=== PATIENT | female | born 1955 | race Caucasian/White ===

== ENCOUNTER 2018-06-29 09:06 | Emergency (ER) | payer BC ==
--- NOTE | 2018-06-29 09:10 | UC ---
Hand/Wrist HPI - HPI Summary HPI Summary: 62 yo female presents with right ring finger pain. She tells me that yesterday she tripped over a log in the snow and fell forward onto her outstretched hands. Did not hit her head. Was able to get to her feet immediately following the incident. Today she has pain in her right ring finger with swelling and bruising. She is right handed. She has applied ice to the area and taken ibuprofen with some relief. Denies numbness or tingling. - History Of Current Complaint Stated Complaint: R HAND COMPLAINT Time Seen by Provider: 06/29/18 09:10 Hx Obtained From: Patient Onset/Duration: Sudden Onset Severity Initially: Mild Severity Currently: Mild Pain Intensity: 4 Pain Scale Used: 0-10 Numeric - Allergies/Home Medications Allergies/Adverse Reactions: Allergies Allergy/AdvReac Type Severity Reaction Status Date / Time amoxicillin Allergy Rash Verified 06/29/18 09:20 nickel Allergy ITCHY, Verified 06/29/18 09:20 REDDENED AND INFLAMMED SKIN PMH/Surg Hx/FS Hx/Imm Hx - Additional Past Medical History Additional PMH: None - Surgical History Surgical History: Yes Surgery Procedure, Year, and Place: 1968-APPENDECTOMY. [id number]. 2001- LEFT KNEE MENISCECTOMY - Family History Known Family History: Positive: None - Social History Occupation: Employed Full-time Lives: With Family Alcohol Use: Daily Alcohol Amount: 1 GLASS OF WINE DAILY Substance Use Type: None Smoking Status (MU): Never Smoked Tobacco Have You Smoked in the Last Year: No Review of Systems All Other Systems Reviewed And Are Negative: Yes Constitutional: Positive: Negative Skin: Positive: Negative Respiratory: Positive: Negative Cardiovascular: Positive: Negative Neurovascular: Positive: Negative Musculoskeletal: Positive: Other: - Right ring finger pain Neurological: Positive: Negative Psychological: Positive: Negative Physical Exam - Summary Physical Exam Summary: GENERAL: NAD. WDWN. No pain distress. SKIN: No rashes, sores, lesions, or open wounds. CHEST: No accessory muscle use. Breathing comfortably and in no distress. CV: Pulses intact radial and ulnar. Cap refill <2seconds MSK: RIGHT RING FINGER: TTP about PIP. Moderate edema and pain with overlying ecchymosis to right ring finger at PIP. Unable to fully flex due to pain and edema. No MC or other hand pain. NEURO: Alert. Sensations intact hand and all fingers. PSYCH: Age appropriate behavior. Triage Information Reviewed: Yes Vital Signs: Vital Signs: Temp Pulse Resp BP Pulse Ox 97.9 F 66 16 128/59 99 06/29/18 09:18 06/29/18 09:18 06/29/18 09:18 06/29/18 09:18 06/29/18 09:18 Vital Signs Reviewed: Yes Hand/Wrist Course/Dx - Course Course Of Treatment: XR: REPORT AND IMPRESSION: #. Bone density appears decreased throughout. Negative for fracture or articular. malalignment. Polyarticular moderate osteoarthritis. Fusiform soft tissue swelling most. prominent at the proximal interphalangeal joint. Pt placed in a finger splint. Advised to RICE and continue ibuprofen. F/u if symptoms do not improve - Differential Dx/Diagnosis Provider Diagnosis: Finger sprain Discharge - Sign-Out/Discharge Documenting (check all that apply): Patient Departure All imaging exams completed and their final reports reviewed: Yes - Discharge Plan Condition: Stable Disposition: HOME Patient Education Materials: Contusion in Adults (ED) Referrals: Huong Hahn MD [Primary Care Provider] - Additional Instructions: If you develop a fever, shortness of breath, chest pain, new or worsening symptoms - please call your PCP or go to the ED. 1) Rest, Ice, and elevate your finger/hand as much as possible 2) Use the finger splint to reduce pain and swelling - Billing Disposition and Condition Condition: STABLE Disposition: Home
--- OUTSIDE RECORDS SUMMARY | 2018-06-29 09:14 | XMS REPORT | Continuity of Care Document ---
:1955 External Reference #:[id number] Author Name Nagi Oliver M.D. Address [address] [facility] [place] [address] Care Team Providers Name Role Phone Huong Hahn MD Care Team Information [employer] Unavailable Huong Hahn MD Primary Care Physician Unavailable Payers Date Identification Numbers Payment Provider Subscriber Policy Number: [id number] [facility] Par Elma Garland PayID: [id number] [place] [address] Advance Directives Description No Information Available Problems Description No Information Family History Date Family Member(s) Observation Comments Father Prostate Cancer Father due to Pancreatic Cancer () Father Arthritis Father Diverticulitis Mother Arthritis Mother due to Bladder Cancer () Mother Polymyalgia Mother Insulin Dependent Diabetes First Daughter A&W Twin Second Daughter A&W Twin First Brother Unknown First Brother A&W Second Brother A&W Second Brother Unknown Paternal Grandfather due to Diabetes () Paternal Grandmother due to Surgery Complications () Maternal Grandfather Aneurysym Maternal Grandfather due to Aneurysm () Maternal Grandmother due to Polycethuria () Maternal Grandmother Polycythemia Social History Type Date Description Comments Sex Unknown Education Highest level of education completed is a doctorate Marital Status Patient is Living Situation Patient lives alone Pets There are no pets in the home 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 [employer] Cigarette Use Never smoked cigarettes Alcohol Currently consumes alcohol Tobacco Use Start: Unknown Patient has never smoked Drug Use Denies drug use Smoking Status Reviewed: 06/03/18 Patient has never smoked Daily Caffeine Drinks on average 1 cup of coffee a day Exercise Type/Frequency Exercises regularly Current Seat Belt/Car Seat Always uses a seat belt Currently Active The patient is currently not sexually active Contraceptive Methods Does not currently use any method of control STD's No STD history Allergies, Adverse Reactions, Alerts Date Description Reaction Status Severity Comments 10/09/2007 Amoxicillin Active Medications Medication Date Status Form Strength Qnty SIG Indications Ordering Provider Ibuprofen Active Z01.818 Unknown No Active 09/14/2014 Hx Unknown Medications - 09/14/2014 Glucosamine Hx Unknown - 09/14/2014 Calcium Hx Unknown - 09/14/2014 Cortizone-10 Hx Unknown - 05/27/2018 Medications Administered in Office Medication Date Status Form Strength Qnty SIG Indications Ordering Provider PT SCRN Tbco Administered Injection Nagi Hsieh Id as Non User 019 Bernardo Oliver PT SCRN Tbco Administered Injection Nagi Hughes as Non User 019 Bernardo Oliver Immunizations Description No Information Available Vital Signs Date Vital Result Comment 06/03/2018 10:01am BP Systolic 116 mmHg BP Diastolic 72 mmHg Height 69 inches 5'9" Weight 168.00 lb BMI (Body Mass Index) 24.8 kg/m2 Last Menstrual Period 0488644 1 Parity 1 05/27/2018 8:04am BP Systolic 122 mmHg BP Diastolic 76 mmHg Height 69 inches 5'9" Weight 169.00 lb BMI (Body Mass Index) 25.0 kg/m2 Last Menstrual Period 3730569 1 Parity 1 LC2 09/14/2014 9:55am BP Systolic 124 mmHg BP Diastolic 62 mmHg Height 69 inches 5'9" Weight 168.00 lb BMI (Body Mass Index) 24.8 kg/m2 Last Menstrual Period 4211383 1 Parity 1LC 2 02/12/2008 2:58pm BP Systolic 120 mmHg BP Diastolic 78 mmHg Height 69 inches 5'9" Weight 174.00 lb BMI (Body Mass Index) 25.7 kg/m2 Last Menstrual Period [id number] 12/02/2007 2:50pm BP Systolic 118 mmHg BP Diastolic 68 mmHg Height 69 inches 5'9" Weight 175.00 lb BMI (Body Mass Index) 25.8 kg/m2 10/09/2007 2:06pm BP Systolic 110 mmHg BP Diastolic 68 mmHg Height 69 inches 5'9" Weight 173.00 lb BMI (Body Mass Index) 25.5 kg/m2 Last Menstrual Period 2511946 1 Parity 2 Results Test Date Facility Test Result H/L Range Note Laboratory test 09/23/2014 [facility] Non-Housemaid SEE RESULT [address] [place] [address] Interface Order BELOW [phone] Laboratory test 09/14/2014 [facility] Cytology SEE RESULT [address] [place] [address] BELOW [phone] Human Papilloma Virus Rna Negative N Negative 3 Laboratory test 02/12/2008 [facility] Cytology <SEE [address] [place] [address] NOTE> [phone] 1 SEE RESULT BELOW Name: ELMA GARLAND : [address]: Reynold Sparrow MD Acct: [id number] Unit: [id number] AGE: 59 Location: [facility] Re09/23/14 SEX: F Status: REG REF SPEC: [id number] AIDEN: 09/23/14 [facility] DR: Reynold Sparrow MD REQ: [id number] RECD: 09/23/14 STATUS: GABINO PARKS DR: Adrianne Sharp BUILD AND DEPLOYMENT ENGINEER _ ORDERED: FN ASP SUPERFIC FINAL DIAGNOSIS Breast, right, fine needle aspiration: Non-diagnostic. Blood and adipose tissue. BREAST RIGHT - RIGHT BREAST CYST FINE NEEDLE ASPIRATION CLINICAL HISTORY Right breast cyst GROSS DESCRIPTION 4 Alcohol fixed slide(s) received from clinician and Needle rinse in CytoLyt solution for thin layer non-validation architect test. Signed (signature on file) Henrique Collado MD [id number] END OF REPORT * ML=Testing performed at Main Lab DEPARTMENT OF PATHOLOGY, [address] [place] [address] Henrique Collado M.D. Director [facility] # [id number] 2 SEE RESULT BELOW Name: ELMA GARLAND : [address]: Adrianne Sharp BUILD AND DEPLOYMENT ENGINEER Acct: [id number] Unit: [id number] AGE: 58 Location: [facility] Re09/14/14 SEX: F Status: REG REF SPEC: [id number] AIDEN: 09/14/14-1037 [facility] DR: Adrianne Sharp [facility] REQ: [id number] RECD: 09/14/14 STATUS: SOUT _ ORDERED: IMAGE ANALYSIS, HPV/Thin Prep FINAL DIAGNOSIS Negative for Intraepithelial lesion or Malignancy A. Ectocervical/Endocervical Specimen Adequacy: Satisfactory of evaluation Transformation zone component identified Patient Information: HPV: High risk HPV RNA testing regardless of pap results. Actual Specimen Date: 09/14/14 LMP If Unknown: 08/2007 Date of Last Specimen: 02/12/08 Post Menopausal?: Y Date Time Test Result Flag (u) Normal Range 09/14/14 1037 HPV RNA Negative Negative The high-risk HPV types detected by the assay include: 16, 18, 31, 33, 35, 39, 45, 51, 52, 56, 58, 59, 66, and 68. Signed (signature on file) VIRGINIE Brandt (ASCP) 09/15 1213 This Pap test was evaluated with the assistance of the ThinPrep Test Imaging System. Due to cytologic findings at the tug boat captain microscope, comprehensive manual rescreening by a Communications Field Technician may be required. The Pap Smear is a screening test designed to aid in the detection of premalignant and malignant conditions of the uterine cervix. It is not a diagnostic procedure and should not be used as the sole means of detecting cervical cancer. Both false- positive and false- negative reports do occur. Depending on your risk status, a Pap smear should be obtained and evaluated every 1-3 years. END OF REPORT * ML=Testing performed at Main Lab DEPARTMENT OF PATHOLOGY, [address] [place] [address] Henrique Collado M.D. Director [facility] # [id number] 3 The high-risk HPV types detected by the assay include: 16, 18, 31, 33, 35, 39, 45, 51, 52, 56, 58, 59, 66, and 68. 4 --- RUN DATE: 02/15/08 [facility] NMI LIVE PAGE 1 RUN TIME: 1530 Specimen Inquiry RUN USER: INTERFACE -- Name: ELMA GARLAND#: [id number] Status: REG REF Re02/12/08 Age/Sex: 52/F Unit#: [id number] Location: [facility]. : [birth year] -- Specimen: [id number] SOUT Spec Date: 02/12/[address]: Debbie lorenzana Jr, MD Spec Type: CYTOLOGY Received: 02/15/08-1130 Copies to: SOURCE ECTOCERVICAL/ENDOCERVICAL Thin Prep with Reflex HPV Test PATIENT INFORMATION ACTUAL COLLECTION DATE: 02/12/08 PREVIOUS ABNORMAL PAP SMEARS Yes If YES, diagnosis: Low grade squamous intraepithelial lesion. LAST MENSTRUAL PERIOD: 01/17/08 DATE OF PRIOR SPECIMEN: 10/09/07 ADEQUACY OF SPECIMEN Satisfactory for evaluation * Transformation zone component identified * DIAGNOSIS NEGATIVE FOR INTRAEPITHELIAL LESION OR MALIGNANCY * This Pap test was evaluated with the assistance of the ThinPrep Pap Test Imaging System. The Pap Smear is a screening test designed to aid in the detection of premalign ant and malignant conditions of the uterine cervix. It is not a diagnostic procedure a nd should not be used as the sole means of detecting cervical cancer. Both false- positive and false-negative reports do occur. Depending on your risk status, a Pap smear jess uld be obtained and evaluated every one to three years. Final Interpretation electronically signed by: Dmitri ELMORE(ASCP) 02/15/08 153 0 -- -- DEPARTMENT OF PATHOLOGY, [address] [place] [address] [facility] Permit #[id number] Henrique Collado M.D. Director of [employer] -- Procedures Date Code Description Status 04/21/2017 07874710 Mammogram Completed 04/21/2014 [id number] Colonoscopy Completed 10/09/2007 56802 Biopsy Endometrial W/O Cervical Dilation Completed Encounters Type Date Location Provider Dx Diagnosis Office Visit 06/03/2018 [facility] Nagi Oliver, Z01.818 Encounter for other 10:00a M.D. preprocedural examination Office Visit 05/27/2018 [facility] Nagi Oliver, N95.0 Postmenopausal 8:00a M.D. 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 W/MISSAELSIL Office Visit 12/02/2007 2:40p [facility] Office Narciso Echavarria 626.4 Irregular Menstrual Bernardo REYNA Cycle 795.03 Pap Smear Cervix W/LGSIL Office Visit 10/09/2007 2:00p [facility] Narciso Echavarria 626.8 Menstruation & Other Bernardo REYNA Abnormal Bleeding Disorders Other Plan of Treatment Future Appointment(s):06/05/2018 9:45 am - Nagi Oliver M.D. at [place] [address] 1:00 pm - Nagi Oliver M.D. at [facility]06/03/2018 - Nagi Oliver M.D.Z01.818 Encounter for other preprocedural examinationComments: DISCUSSED RISKS OF SURGERY FOR DILATION AND CURRETAGE HYSTEROSCOPY INCLUDING BUT NOT LIMITED TO INJURY TO BOWEL, BLADDER, NERVES AND BLOOD VESSELS. DISCUSSED BLEEDING AND INFECTION RISKS AND POSSIBLE NEED FOR TRANSFUSION. PT UNDERSTANDS RISK OF WOUND COMPLICATION INCLUDING BREAKDOWN AND HERNIA. RISK OF DEEP VENOUS THROMBOSIS AND SEQUELAE. REASONS FOR SURGERY AND THE BENEFITS DERIVED. PT UNDERSTANDS THE ALTERNATIVES AND HAS HAD OPPORTUNITY TO ASK QUESTIONS WITH APPROPRIATE ANSWERS GIVEN.LENGTH OF TYPICAL HOSPITAL STAY AND FULL RECOVERY IF NO COMPLICATIONS OCCUR DISCUSSED.PREVENTATIVE MEASURES FOR CERTAIN COMPLICATIONS DISCUSSED.
[2018-06-29 09:20] VITALS: BP 128/59
== END 2018-06-29 09:55 | disposition home or self-care (01) ==
LOC: UCEAST 09:06
DX: S63.614A Unspecified sprain of right ring finger, initial encounter (principal); Z88.0 Allergy status to penicillin; Z91.09 Other allergy status, other than to drugs and biological substances; W18.49XA Other slipping, tripping and stumbling without falling, initial encounter; Y92.9 Unspecified place or not applicable
CPT/HCPCS: 73140; 99211; G0463